=== PATIENT | female | born 1945 | race Hispanic/Latino ===

== ENCOUNTER 2022-12-04 13:20 | Emergency (ER) | payer MEDICARE ==
[~2022-12-04] VITALS: Ht 154.9 cm; Wt 70.8 kg
[2022-12-04] MEDS ORDERED: METOPROLOL TARTRATE 25 MG TAB PO ONE (14:15)
== END 2022-12-04 13:59 | disposition home or self-care (01) ==
LOC: ER 13:44
DX: R00.2 Palpitations (principal); I10 Essential (primary) hypertension; I48.91 Unspecified atrial fibrillation; E78.5 Hyperlipidemia, unspecified; M54.9 Dorsalgia, unspecified; G89.29 Other chronic pain; Z85.3 Personal history of malignant neoplasm of breast
CPT/HCPCS: 93005; 99282